=== PATIENT | male | born 1955 | race Caucasian/White ===

== ENCOUNTER 2017-11-15 11:59 | Day surgery (SDC) | payer OTHER ==
[2017-11-14 09:39] VITALS: BMI 35.5
[2017-11-15] MEDS ORDERED: Lidocaine 1% w/Epinephrine 1:100K 30 ML VIAL ONE (12:52)
[2017-11-15] MEDS ORDERED: Oxymetazoline HCl 0.05% ( 15 ML ) ONE ×2 (12:53→13:00)
[2017-11-15] MEDS ORDERED: Bacitracin Zinc Ointment 30 gm TUBE ONE (12:53)
[2017-11-15] MEDS ORDERED: Fentanyl 100 MCG/2 ML VIAL ONE (13:04)
[2017-11-15] MEDS ORDERED: Hydrocodone-Acetamin 15 ML UDCUP ONE (16:00)
--- NOTE | 2017-11-16 12:45 | OP ---
PREOPERATIVE DIAGNOSES: Obstructive sleep apnea and hypertrophic inferior turbinates. POSTOPERATIVE DIAGNOSES: Obstructive sleep apnea and hypertrophic inferior turbinates. PROCEDURES PERFORMED: 1. Tonsillectomy over 12. 2. Uvulopalatopharyngoplasty 3. Bilateral nasal endoscopy with submucosal resection inferior turbinates. TITLE OF PROCEDURE: Tonsillectomy. PROCEDURE IN DETAIL: After consent was obtained, the patient was identified, brought to the operatin g room, and placed on the operating table in the supine position. General endotracheal anesthesia an d intravenous access was obtained and we proceeded with positioning the patient for oropharyngeal erica ameena. Oropharyngeal exposure was obtained with a Jason-John mouth gag after a head drape was placed and secured with a towel clip. The Jason-John mouth gag was then suspended from the Morris tray and palatal elevation was achieved with a red rubber catheter. The right tonsil was addressed first. We used a curved Allis to grasp the tonsil and retract it medially as an anterior pillar incision was m paris with a #12 blade. The retrotonsillar fascial plane was then established and blunt dissection was performed with the suction cautery. Blood vessels were anticipated, identified, and cauterized as t hey were encountered. Ultimately, dissection was carried to the posterior tonsillar pillar mucosa wh ich was incised hemostatically, as well as the base of tongue connection. The tonsil was then passed off as a specimen and bleeding points within the tonsillar bed were cauter ized under direct visualization. We subsequently turned our attention to the contralateral side, whe re using a similar technique, a near identical procedure was performed. Again, the tonsil was graspe d and retracted medially with a curved Allis as an anterior pillar incision was made with a #12 blade . The retrotonsillar fascial plane was established and while the anterior pillar was retracted media lly, the hemostatic blunt dissection of the tonsil with a suction cautery was performed with blood ve ssels anticipated, identified, and cauterized as they were encountered. Again, dissection continued to the base of tongue and posterior tonsillar pillar mucosa which was incised in a hemostatic fashion . The tonsillar beds were then carefully inspected and bleeding points were identified and cauterize d with a suction cautery. After this portion of the procedure, hemostasis was completely obtained. The patient's oral cavity was copiously irrigated with iced saline and subsequently suctioned. We th en used the red rubber catheter to suction the gastric contents and the patient was subsequently arou sed, awakened, and extubated without difficulty and transported to the recovery room in stable condit ion. There were no complications. TITLE OF PROCEDURE: Uvulopalatopharygoplasty PROCEDURE IN DETAIL: We turned our attention to the oropharynx. A shoulder roll was placed, and the patient was positioned for oropharyngeal surgery. A Jason-John mouth gag was used to obtain exposu re to the oropharynx. We then proceeded with a standard tonsillectomy. The tonsil was grasped and r etracted medially as an anterior pillar incision was performed. We then established the retrotonsill ar fascial plane and dissected along this plane with the suction cautery. Great care was made not to violate or injure any of the surrounding oropharyngeal mucosa. Ultimately, the posterior tonsillar pillar mucosa was incised, and the tonsil was removed. Identical technique was used on the contralat eral side such that both sides of the oropharynx underwent a hemostatic tonsillectomy. Bleeding poin ts were then examined, identified, and cauterized under direct visualization. We then turned our att ention to the soft palate where the uvula was grasped, and vertical soft palate incisions were create d on both sides of the large uvula. We then performed a horizontal incision, thus transecting the uv dayanna from the surrounding soft palate. We then performed crescentic excisions of the anterior tonsill ar pillar mucosa. The posterior pillar mucosa was then reapproximated to the anterior pillar mucosa with 3-0 interrupted Vicryl sutures. This was done throughout the entirety of the oropharynx such th at minimal tension was left on the posterior oropharyngeal mucosa. Ultimately, the nasal cavity, ora l cavity, oropharynx, and nasopharynx were copiously irrigated, suctioned, and all bleeding was contr olled. There were no complications. The patient tolerated the procedure well and was discharged to the [facility] very room in stable condition prior to return to the preoperative Day Stay with ultimate discharge [place]. Prescriptions for pain medication and antibiotics were provided. The patient received intramusc ular Depo-Medrol during the case. Outfracture & Cautery of the Inferior Turbinates Consent had already been obtained, notifying the patient of the possibility of additional infections, bleeding, brain injury, and eye/orbital injury. The patient was then positioned, prepped and drape d for endoscopic sinus surgery. Nasal preparation included trimming nasal vestibular hairs and spray ing in topical Afrin. We then placed Afrin topical solution on nasal pledgets and strategically loca romeo them intranasally. The perinasal mucosa was injected with 1% lidocaine with 1:100,000 epinephrin e in the submucoperichondrial plane of the septum, lateral nasal wall, and anterior to the uncinate. The patient was then prepped and draped in a sterile fashion and positioned for endoscopic sinus erica ameena. The inferior turbinates were visualized with a 0-degree endoscope and outfractured with a Meg eleva tor. The inferior medial aspect was cauterized with the electrocautery. Hemostasis was obtained . After adequate airway was established, we turned our attention to the contralateral side and used a s imilar procedure. Again, a Meg elevator was used to outfracture inferior turbinates under endoscop ic visualization. With a suction cautery, the free inferior medial aspect was cauterized under direc t visualization along the length of the inferior turbinate. At this point, we then turned our attention to the contralateral side and proceeded with endoscopic s inus surgery as described above. At the completion of the case, Rice keel splints were placed in the ethmoid cavities after the ethmoi dectomy. There were no complications. The patient tolerated the procedure well and was discharged t o the recovery room in stable condition prior to return to the preoperative Day Stay with [facility]. Prescriptions for pain medication and antibiotics were provided. The patient received intramuscular Depo-Medrol during the case.
--- NOTE | 2017-11-16 13:00 | EKG ---
Test Reason : PREOP Blood Pressure : / mmHG Vent. Rate : 057 BPM Atrial Rate : 057 BPM P-R Int : 180 ms QRS Dur : 084 ms QT Int : 434 ms P-R-T Axes : 043 016 020 degrees QTc Int : 422 ms Sinus bradycardia Otherwise normal ECG No previous ECGs available Confirmed by RONNIE ORTA, DR. Hickman ([id number]) on 11/16/2017 1:00:40 PM Referred By: ROB Confirmed By:DR. Marylou TRUJILLO MD
== END 2017-11-15 16:40 | disposition home or self-care (01) ==
LOC: SDC 11:59
PROVIDERS: ATTEND Specialist
PROC: 0C5PXZZ Destruction of Tonsils, External Approach (ICD-10-PCS; principal; 2017-11-15)
PROC: 095L8ZZ Destruction of Nasal Turbinate, Via Natural or Artificial Opening Endoscopic (ICD-10-PCS; principal; 2017-11-15)
PROC: 0CBN0ZZ Excision of Uvula, Open Approach (ICD-10-PCS; principal; 2017-11-15)
DX: G47.33 Obstructive sleep apnea (adult) (pediatric) (principal); J34.3 Hypertrophy of nasal turbinates; J35.1 Hypertrophy of tonsils; M10.9 Gout, unspecified; I10 Essential (primary) hypertension; Z87.891 Personal history of nicotine dependence; Z79.899 Other long term (current) drug therapy
CPT/HCPCS: 88302; 88304; 93005; 93010; J0131; J2001; J3010